=== PATIENT | female | born 1985 | race Caucasian/White ===

== ENCOUNTER 2023-01-20 16:17 | Observation (INO) | payer BC ==
[~2023-01-20 16:17] MED LIST: Iopamidol 370 76% 100 ML VIAL ONE
[2023-01-20 17:37] LABS: #Eosinphils 0.9 10x3/uL (0.0-0.5); #Monocytes 0.4 10x3/uL (0.0-1.1); #Neutrophils 7.3 10x3/uL (1.5-8.4); %Basophils 0.4 % (0.0-2.0); %Eosinophils 8.5 % (0.0-6.0); %Lymphocytes 19.3 % (18.0-47.0); %Monocytes 3.8 % (0.0-10.0); %Neutrophils 67.1 % (40.0-75.0); Hemoglobin 13.4 g/dL (12.0-15.5); Mean Corpuscular HGB CONC 34.3 g/dL (32.0-36.0); Mean Corpuscular Hemoglobin 29.2 pg (27.0-33.0); Mean Corpuscular Volume 85.2 fl (81.6-98.3); Mean Platelet Volume 9.4 fl (7.4-10.4); Platelet Count 315 10x3/uL (150-450); RBC Distribution Width 13.2 % (11.5-14.5); Red Blood Cell (RBC) Count 4.59 10x6/uL (3.90-5.03); White Blood Cell (WBC) Count 10.9 10x3/uL (3.5-10.5)
[2023-01-20 17:48] LABS: BHCG - Serum Negative (NEGATIVE)
[2023-01-20 17:49] LABS: Pregs Control Background? CLEAR/WHITE (CLR/WHITE); Pregs Control Bar Appear? YES (CONTROL BAR)
[2023-01-20] MEDS ORDERED: Ondansetron PF 4 MG/2 ML Vial ONE ×2 (17:51→21:32)
[2023-01-20 18:00] LABS: ALT (SGPT) 163 U/L (8-55); AST (SGOT) 55 U/L (5-34); Albumin 4.2 g/dL (3.5-5.0); Alkaline Phosphatase 256 U/L (40-110); Anion Gap 15 mmol/L (10-20); BUN (Urea Nitrogen) 13 mg/dL (7.0-18.7); Bilirubin, Total 0.8 mg/dL (0.2-1.2); Calc. Creatinine Clearance 0 mL/min (70-130); Calcium 9.7 mg/dL (7.8-10.44); Carbon Dioxide 19 mmol/L (22-29); Chloride 103 mmol/L (98-107); Estimated GFR 106; Globulin 3.3 g/dL (2.4-3.5); Glucose 169 mg/dL (70-105); Lipase 28 U/L (8-78); Magnesium 1.8 mg/dL (1.6-2.6); Potassium 3.9 mmol/L (3.5-5.1); Protein, Total 7.5 g/dL (6.0-8.3); Sodium 133 mmol/L (136-145)
[2023-01-20 18:03] LABS: SARS-CoV-2 NAA Rapid Test Not Detected (NotDetected)
[2023-01-20 18:38] LABS: Bilirubin Neg (Negative); Blood, Urine Negative (Negative); Clarity Clear (Clear); Glucose, Urine (Dipstick) Normal (Negative); Ketone, Urine Negative (Negative); Leukocyte Negative (Negative); Nitrite Negative (Negative); Protein, Urine (Dipstick) Negative (Neg-Trace); Urobilinogen Normal mg/dL (Less than 2); pH, Urine 6.5 (5.0-9.0)
[2023-01-20] MEDS ORDERED: Pantoprazole 40 MG VIAL ONE (22:25)
[2023-01-20] MEDS ORDERED: HumaLOG 300 UNITS/3 ML VIAL SC PRN (22:27)
[2023-01-20] MEDS ORDERED: Dextrose 5% in Water 1,000 ML IV PRN (22:27)
[2023-01-20] MEDS ORDERED: Dextrose 50% Abboject 50 ML SYRINGE SLOW IVP PRN (22:27)
[2023-01-20] MEDS ORDERED: Acetaminophen 325 MG TAB PO PRN (22:27)
[2023-01-20] MEDS ORDERED: Guaifenesin DM 100-10/5 ML UDCUP PO PRN (22:27)
[2023-01-20] MEDS ORDERED: HYDROcodone/Acetaminophen 5/325 mg Tablet PO PRN (22:27)
[2023-01-20] MEDS ORDERED: Senokot S 8.6-50 MG TAB PO PRN (22:27)
[2023-01-20] MEDS ORDERED: Cyclobenzaprine 10 MG TAB PO PRN (22:30)
[2023-01-20] MEDS: Sodium Chloride 0.9% 1,000 ML IV SCH (23:43)
[2023-01-21] MEDS ORDERED: Ondansetron PF 4 MG/2 ML Vial ONE ×2 (02:38→14:16)
[2023-01-21] MEDS: Ondansetron PF 4 MG/2 ML Vial IVP PRN ×2 (02:40→14:32)
[2023-01-21 04:05] LABS: #Basophils 0.1 10x3/uL (0.0-0.2); #Eosinphils 0.8 10x3/uL (0.0-0.5); #Monocytes 0.5 10x3/uL (0.0-1.1); %Basophils 0.6 % (0.0-2.0); %Eosinophils 8.2 % (0.0-6.0); %Lymphocytes 25.5 % (18.0-47.0); %Monocytes 5.3 % (0.0-10.0); %Neutrophils 59.4 % (40.0-75.0); Hemoglobin 11.6 g/dL (12.0-15.5); Mean Corpuscular HGB CONC 33.8 g/dL (32.0-36.0); Mean Corpuscular Hemoglobin 29.1 pg (27.0-33.0); Mean Platelet Volume 9.3 fl (7.4-10.4); Platelet Count 254 10x3/uL (150-450); RBC Distribution Width 13.3 % (11.5-14.5); Red Blood Cell (RBC) Count 3.99 10x6/uL (3.90-5.03); White Blood Cell (WBC) Count 10.1 10x3/uL (3.5-10.5)
[2023-01-21 04:16] LABS: ALT (SGPT) 112 U/L (8-55); AST (SGOT) 29 U/L (5-34); Albumin 3.6 g/dL (3.5-5.0); Alkaline Phosphatase 188 U/L (40-110); Anion Gap 12 mmol/L (10-20); BUN (Urea Nitrogen) 9 mg/dL (7.0-18.7); Bilirubin, Total 1.1 mg/dL (0.2-1.2); Calc. Creatinine Clearance 0 mL/min (70-130); Carbon Dioxide 20 mmol/L (22-29); Chloride 108 mmol/L (98-107); Estimated GFR 114; Globulin 2.6 g/dL (2.4-3.5); Glucose 115 mg/dL (70-105); Lipase 26 U/L (8-78); Protein, Total 6.2 g/dL (6.0-8.3); Sodium 136 mmol/L (136-145)
[2023-01-21 05:07] LABS: Amphetamine Not Detected (NotDetected); Barbiturates Screen Not Detected (NotDetected); Benzodiazepine Screen Not Detected (NotDetected); Cocaine Metabolite Screen Not Detected (NotDetected); Methadone Not Detected (NotDetected); Methamphetamine Not Detected (NotDetected); Opiate Screen Detected (NotDetected); Oxycodone Screen Not Detected (NotDetected); Phencyclidine (PCP) Not Detected (NotDetected); THC/Cannabinoid Screen Not Detected (NotDetected); Tricyclic Screen Not Detected (NotDetected)
[2023-01-21] MEDS ORDERED: Sertraline 100 MG TAB PO SCH (09:00)
[2023-01-21] MEDS ORDERED: Pantoprazole 40 MG VIAL IVP SCH (09:00)
[2023-01-21] MEDS ORDERED: Pantoprazole 40 MG VIAL ONE (09:13)
[2023-01-21] MEDS: Sodium Chloride 0.9% 1,000 ML IV SCH (10:59)
[2023-01-21] MEDS ORDERED: HYDROcodone/Acetaminophen 5/325 mg Tablet ONE (14:17)
== END 2023-01-21 14:45 | disposition short-term general hospital (02) ==
LOC: CSHERS 16:17 → INTOOBSV 23:19 → CSHERHOLD 23:19
PROVIDERS: ADMIT Student in an Organized Health Care Education/Training Program; ATTEND Family Medicine
DX: R10.11 Right upper quadrant pain (principal); E86.0 Dehydration; K92.1 Melena; R79.89 Other specified abnormal findings of blood chemistry; R10.13 Epigastric pain; R11.2 Nausea with vomiting, unspecified; E11.9 Type 2 diabetes mellitus without complications; E66.9 Obesity, unspecified; F41.9 Anxiety disorder, unspecified; Z90.89 Acquired absence of other organs; Z90.49 Acquired absence of other specified parts of digestive tract; Z88.0 Allergy status to penicillin; Z79.899 Other long term (current) drug therapy; Z87.891 Personal history of nicotine dependence; R42 Dizziness and giddiness; R55 Syncope and collapse; K81.9 Cholecystitis, unspecified; R00.0 Tachycardia, unspecified
CPT/HCPCS: 36415; 36416; 71275; 74177; 80053; 80306; 81003; 82274; 83605; 83690; 83735; 84443; 84484; 84703; 85025; 85379; 93005; 96361; 96374; 96375; 96376; C9113; G0378; J2405; J7050; Q9967

== ENCOUNTER 2023-07-28 10:03 | Emergency (ER) | payer OTHER ==
[2023-07-28] MEDS ORDERED: Rabies Immune Globulin/PF 300 UNITS/ML VIAL IM SCH (12:00)
[2023-07-28] MEDS ORDERED: Rabies Vaccine Human 2.5 UNITS VIAL IM ONE (12:00)
== END 2023-07-28 13:08 | disposition home or self-care (01) ==
LOC: CSHERS 10:03
DX: Z20.3 Contact with and (suspected) exposure to rabies (principal); Z23 Encounter for immunization; E11.9 Type 2 diabetes mellitus without complications
CPT/HCPCS: 90375; 90471; 90675; 96372; 99281

== ENCOUNTER 2023-11-30 12:38 | Emergency (ER) | payer OTHER ==
[2023-11-30 13:27] LABS: Bilirubin Neg (Negative); Blood, Urine Negative (Negative); Clarity Clear (Clear); Glucose, Urine (Dipstick) Normal (Negative); Ketone, Urine Negative (Negative); Leukocyte Negative (Negative); Nitrite Negative (Negative); Protein, Urine (Dipstick) Negative (Neg-Trace); Urobilinogen Normal mg/dL (Less than 2)
[2023-11-30 13:32] LABS: Pregnancy Test - Urine (BHCG) Negative (Negative)
[2023-11-30 13:32] LABS: #Eosinphils 0.1 10x3/uL (0.0-0.5); #Monocytes 0.5 10x3/uL (0.0-1.1); #Neutrophils 3.9 10x3/uL (1.5-8.4); %Basophils 0.5 % (0.0-2.0); %Eosinophils 1.9 % (0.0-6.0); %Lymphocytes 29.5 % (18.0-47.0); %Monocytes 7.9 % (0.0-10.0); %Neutrophils 59.7 % (40.0-75.0); Hematocrit 34.1 % (34.9-44.5); Hemoglobin 11.3 g/dL (12.0-15.5); Mean Corpuscular HGB CONC 33.1 g/dL (32.0-36.0); Mean Corpuscular Hemoglobin 27.6 pg (27.0-33.0); Mean Corpuscular Volume 83.2 fl (81.6-98.3); Mean Platelet Volume 10.4 fl (7.4-10.4); Platelet Count 259 10x3/uL (150-450); RBC Distribution Width 12.8 % (11.5-14.5); White Blood Cell (WBC) Count 6.5 10x3/uL (3.5-10.5)
[2023-11-30 13:33] LABS: Pregu Control Background? CLEAR/WHITE (CLR/WHITE); Pregu Control Bar Appear? YES (CONTROL BAR)
[2023-11-30 13:44] LABS: ALT (SGPT) 15 U/L (8-55); AST (SGOT) 12 U/L (5-34); Albumin 4.4 g/dL (3.5-5.0); Alkaline Phosphatase 75 U/L (40-110); Anion Gap 10 mmol/L (10-20); BUN (Urea Nitrogen) 10 mg/dL (7.0-18.7); Bilirubin, Total 1.4 mg/dL (0.2-1.2); Calc. Creatinine Clearance 0 mL/min (70-130); Calcium 9.3 mg/dL (7.8-10.44); Carbon Dioxide 25 mmol/L (22-29); Chloride 105 mmol/L (98-107); Estimated GFR 108; Globulin 2.8 g/dL (2.4-3.5); Glucose 99 mg/dL (70-105); Lipase 57 U/L (8-78); Potassium 4.2 mmol/L (3.5-5.1); Protein, Total 7.2 g/dL (6.0-8.3); Sodium 136 mmol/L (136-145)
[2023-11-30] MEDS ORDERED: Ondansetron PF 4 MG/2 ML Vial ONE (13:45)
[2023-11-30] MEDS ORDERED: Morphine 4 MG/ML VIAL ONE ×2 (13:45→15:13)
[2023-11-30 13:55] LABS: RBC/HPF 0-3 HPF (0-3)
[2023-11-30 13:56] LABS: Bacteria/HPF 2+ HPF (None Seen); CAUTI Indications for Culture Pelvic or flank pain; Squamous Epithelial 0-3 HPF (0-3); WBC/HPF 0-3 HPF (0-3)
[2023-11-30 13:57] LABS: Urine Culture Reflex No No
== END 2023-11-30 15:21 | disposition home or self-care (01) ==
LOC: CSHERS 12:38
DX: R10.9 Unspecified abdominal pain (principal); E11.9 Type 2 diabetes mellitus without complications
CPT/HCPCS: 36415; 74176; 80053; 81001; 81025; 83690; 85025; 96374; 96375; 96376; J2270; J2405

== ENCOUNTER 2024-08-12 10:51 | Emergency (ER) | payer OTHER, SELFPAY ==
[2024-08-12] MEDS ORDERED: Ketorolac Tromethamine 30 MG (1 mL) VIAL ONE (11:43)
[2024-08-12] MEDS ORDERED: Ondansetron PF 4 MG/2 ML Vial ONE (11:43)
[2024-08-12 11:51] LABS: #Basophils 0.03 10x3/uL (0.0-0.2); #Eosinophils 0.14 10x3/uL (0.0-0.5); #Monocytes 0.44 10x3/uL (0.0-1.1); #Neutrophils 4.28 10x3/uL (1.5-8.4); %Basophils 0.5 % (0.0-2.0); %Eosinophils 2.2 % (0.0-6.0); %Lymphocytes 20.2 % (18.0-47.0); %Monocytes 7.1 % (0.0-10.0); %Neutrophils 68.7 % (40.0-75.0); Hematocrit 30.1 % (34.9-44.5); Hemoglobin 9.2 g/dL (12.0-15.5); Mean Corpuscular HGB CONC 30.6 g/dL (32.0-36.0); Mean Corpuscular Hemoglobin 23.1 pg (27.0-33.0); Mean Corpuscular Volume 75.6 fL (81.6-98.3); Mean Platelet Volume 10.1 fL (7.4-10.4); Platelet Count 232 10x3/uL (150-450); RBC Distribution Width 15.3 % (11.5-14.5); Red Blood Cell (RBC) Count 3.98 10x6/uL (3.90-5.03); White Blood Cell (WBC) Count 6.2 10x3/uL (3.5-10.5)
[2024-08-12 12:06] LABS: BHCG - Serum Negative (NEGATIVE); Pregs Control Background? CLEAR/WHITE (CLR/WHITE); Pregs Control Bar Appear? YES (CONTROL BAR)
[2024-08-12 12:12] LABS: ALT (SGPT) 20 U/L (8-55); AST (SGOT) 14 U/L (5-34); Albumin 3.4 g/dL (3.5-5.0); Alkaline Phosphatase 83 U/L (40-110); Anion Gap 11 mmol/L (10-20); BUN (Urea Nitrogen) 10 mg/dL (7.0-18.7); Bilirubin, Total 0.8 mg/dL (0.2-1.2); Calc. Creatinine Clearance 0 mL/min (70-130); Carbon Dioxide 21 mmol/L (22-29); Chloride 107 mmol/L (98-107); Estimated GFR 114; Globulin 3.2 g/dL (2.4-3.5); Glucose 142 mg/dL (70-105); Lipase 41 U/L (8-78); Magnesium 1.7 mg/dL (1.6-2.6); Potassium 3.5 mmol/L (3.5-5.1); Protein, Total 6.6 g/dL (6.0-8.3); Sodium 135 mmol/L (136-145)
[2024-08-12 12:15] LABS: Troponin I Less than 0.010 ng/mL (< 0.028)
[2024-08-12] MEDS ORDERED: Morphine 4 MG/ML VIAL ONE (13:02)
[2024-08-12] MEDS ORDERED: Iopamidol 370 76% 100 ML VIAL ONE (13:11)
[2024-08-12 13:56] LABS: Bilirubin Neg (Negative); Blood, Urine Negative (Negative); Clarity Clear (Clear); Glucose, Urine (Dipstick) Normal (Negative); Ketone, Urine Negative (Negative); Leukocyte Negative (Negative); Nitrite Negative (Negative); Protein, Urine (Dipstick) 15 mg/dl (Neg-Trace); Urobilinogen Normal mg/dL (Less than 2)
[2024-08-12 14:17] LABS: Bacteria/HPF 1+ HPF (None Seen); CAUTI Indications for Culture Pelvic or flank pain; Mucous/LPF 1+ LPF (<2+); RBC/HPF 0-3 HPF (0-3); Squamous Epithelial 0-3 HPF (0-3); WBC/HPF 0-3 HPF (0-3)
[2024-08-12 14:18] LABS: Urine Culture Reflex No No
[2024-08-12] MEDS ORDERED: Milk Of Magnesia 30 ML UDCUP ONE (14:25)
[2024-08-12] MEDS ORDERED: Lidocaine Viscous Sol 2% 15 ml UD Cup ONE (14:25)
[2024-08-12] MEDS ORDERED: Famotidine/PF 20 mg/2ml Vial ONE (14:25)
== END 2024-08-12 15:07 | disposition home or self-care (01) ==
LOC: CSHERS 10:51
DX: N83.202 Unspecified ovarian cyst, left side (principal); F17.210 Nicotine dependence, cigarettes, uncomplicated
CPT/HCPCS: 36415; 74177; 80053; 81001; 83605; 83690; 83735; 84484; 84703; 85025; 85379; 93005; 93010; 96361; 96374; 96375; J1885; J2272; J2405; J3490; Q9967

== ENCOUNTER 2024-12-16 12:31 | Emergency (ER) | payer OTHER ==
[2024-12-16] MEDS ORDERED: Ondansetron PF 4 MG/2 ML Vial ONE (15:09)
[2024-12-16] MEDS ORDERED: Morphine 4 MG/ML VIAL ONE (15:09)
[2024-12-16 15:28] LABS: BHCG - Serum Negative (NEGATIVE); Pregs Control Background? CLEAR/WHITE (CLR/WHITE); Pregs Control Bar Appear? YES (CONTROL BAR)
[2024-12-16 15:35] LABS: ALT (SGPT) 19 U/L (Less than 34); AST (SGOT) 19 U/L (11-34); Albumin 4.4 g/dL (3.1-4.5); Alkaline Phosphatase 92 U/L (40-110); Anion Gap 10 mmol/L (10-20); BUN (Urea Nitrogen) 11 mg/dL (7.0-18.7); Bilirubin, Total 1.3 mg/dL (0.3-1.2); Calc. Creatinine Clearance 0 mL/min (70-130); Calcium 9.3 mg/dL (7.8-10.44); Carbon Dioxide 19 mmol/L (22-29); Chloride 111 mmol/L (98-107); Estimated GFR 115; Globulin 3.2 g/dL (2.4-3.5); Glucose 126 mg/dL (70-105); Protein, Total 7.6 g/dL (6.0-8.3); Sodium 136 mmol/L (136-145)
[2024-12-16 15:52] LABS: #Basophils 0.04 10x3/uL (0.0-0.2); #Eosinophils 0.13 10x3/uL (0.0-0.5); #Neutrophils 4.19 10x3/uL (1.5-8.4); %Basophils 0.6 % (0.0-2.0); %Eosinophils 1.9 % (0.0-6.0); %Monocytes 5.7 % (0.0-10.0); %Neutrophils 59.9 % (40.0-75.0); Hematocrit 37.2 % (34.9-44.5); Hemoglobin 12.5 g/dL (12.0-15.5); Mean Corpuscular HGB CONC 33.6 g/dL (32.0-36.0); Mean Corpuscular Hemoglobin 27.7 pg (27.0-33.0); Mean Corpuscular Volume 82.3 fL (81.6-98.3); Mean Platelet Volume 9.4 fL (7.4-10.4); Platelet Count 291 10x3/uL (150-450); Red Blood Cell (RBC) Count 4.52 10x6/uL (3.90-5.03); White Blood Cell (WBC) Count 6.99 10x3/uL (3.5-10.5)
[2024-12-16 16:01] LABS: Anisocytosis SLIGHT = 6-15 cells (100X) (0-5/hpf); MDiff Complete? YES; Platelet Adequacy Comment Appears Adequate
[2024-12-16] MEDS ORDERED: Droperidol 5 MG/2 ML VIAL ONE (16:59)
[2024-12-16] MEDS ORDERED: diphenhydrAMINE 50 MG/ML VIAL ONE (16:59)
== END 2024-12-16 18:20 | disposition home or self-care (01) ==
LOC: CSHERS 12:31
DX: R51.9 Headache, unspecified (principal); R42 Dizziness and giddiness; E11.9 Type 2 diabetes mellitus without complications; Z87.891 Personal history of nicotine dependence
CPT/HCPCS: 36415; 70450; 80053; 84703; 85025; 96374; 96375; J1200; J1790; J2270; J2405

== ENCOUNTER 2025-06-16 16:20 | Emergency (ER) | payer OTHER ==
[2025-06-16 17:39] LABS: #Basophils 0.03 10x3/uL (0.0-0.2); #Eosinophils 0.11 10x3/uL (0.0-0.5); #Monocytes 0.43 10x3/uL (0.0-1.1); #Neutrophils 4.69 10x3/uL (1.5-8.4); %Basophils 0.4 % (0.0-2.0); %Eosinophils 1.5 % (0.0-6.0); %Lymphocytes 28.8 % (18.0-47.0); %Monocytes 5.7 % (0.0-10.0); %Neutrophils 62.4 % (40.0-75.0); Hematocrit 31.3 % (34.9-44.5); Hemoglobin 10.7 g/dL (12.0-15.5); Mean Corpuscular Hemoglobin 31.2 pg (27.0-33.0); Mean Corpuscular Volume 91.3 fL (81.6-98.3); Platelet Count 252 10x3/uL (150-450); Red Blood Cell (RBC) Count 3.43 10x6/uL (3.90-5.03); White Blood Cell (WBC) Count 7.51 10x3/uL (3.5-10.5)
[2025-06-16 18:00] LABS: ALT (SGPT) 13 U/L (Less than 34); AST (SGOT) 12 U/L (11-34); Albumin 3.8 g/dL (3.1-4.5); Alkaline Phosphatase 67 U/L (40-110); Anion Gap 10 mmol/L (10-20); BUN (Urea Nitrogen) 12 mg/dL (7.0-18.7); Bilirubin, Total 0.7 mg/dL (0.3-1.2); Calc. Creatinine Clearance 0 mL/min (70-130); Calcium 9.3 mg/dL (7.8-10.44); Carbon Dioxide 21 mmol/L (22-29); Chloride 111 mmol/L (98-107); Globulin 2.5 g/dL (2.4-3.5); Glucose 121 mg/dL (70-105); Potassium 3.6 mmol/L (3.5-5.1); Sodium 138 mmol/L (136-145)
[2025-06-16 18:02] LABS: Troponin I Less than 0.010 ng/mL (< 0.028)
== END 2025-06-16 18:49 | disposition home or self-care (01) ==
LOC: CSHERS 16:20
DX: R00.2 Palpitations (principal); E11.9 Type 2 diabetes mellitus without complications; Z87.891 Personal history of nicotine dependence
CPT/HCPCS: 71045; 80053; 84484; 85025; 85379; 93005

== ENCOUNTER 2025-08-29 18:12 | Emergency (ER) | payer OTHER ==
[2025-08-29 18:57] LABS: #Basophils 0.04 10x3/uL (0.0-0.2); #Eosinophils 0.22 10x3/uL (0.0-0.5); #Monocytes 0.44 10x3/uL (0.0-1.1); #Neutrophils 5.15 10x3/uL (1.5-8.4); %Basophils 0.5 % (0.0-2.0); %Eosinophils 2.6 % (0.0-6.0); %Lymphocytes 29.3 % (18.0-47.0); %Monocytes 5.3 % (0.0-10.0); %Neutrophils 61.6 % (40.0-75.0); Hematocrit 34.2 % (34.9-44.5); Hemoglobin 11.6 g/dL (12.0-15.5); Mean Corpuscular Hemoglobin 30.7 pg (27.0-33.0); Mean Corpuscular Volume 90.5 fL (81.6-98.3); Platelet Count 310 10x3/uL (150-450); Red Blood Cell (RBC) Count 3.78 10x6/uL (3.90-5.03); White Blood Cell (WBC) Count 8.36 10x3/uL (3.5-10.5)
[2025-08-29 19:14] LABS: ALT (SGPT) 20 U/L (Less than 34); AST (SGOT) 16 U/L (11-34); Albumin 4.2 g/dL (3.1-4.5); Alkaline Phosphatase 87 U/L (40-110); Anion Gap 10 mmol/L (10-20); BUN (Urea Nitrogen) 15 mg/dL (7.0-18.7); Bilirubin, Total 0.5 mg/dL (0.3-1.2); Calc. Creatinine Clearance 0 mL/min (70-130); Calcium 9.3 mg/dL (7.8-10.44); Carbon Dioxide 19 mmol/L (22-29); Chloride 113 mmol/L (98-107); Globulin 2.8 g/dL (2.4-3.5); Glucose 134 mg/dL (70-105); Potassium 3.6 mmol/L (3.5-5.1); Sodium 138 mmol/L (136-145)
[2025-08-29 19:15] LABS: Troponin I Less than 0.010 ng/mL (< 0.028)
== END 2025-08-29 19:56 | disposition home or self-care (01) ==
LOC: CSHERS 18:12
DX: R00.2 Palpitations (principal); E11.9 Type 2 diabetes mellitus without complications; Z55.6 Problems related to health literacy; Z87.891 Personal history of nicotine dependence; Z79.899 Other long term (current) drug therapy; Z79.85 Long-term (current) use of injectable non-insulin antidiabetic drugs
CPT/HCPCS: 36415; 70450; 71045; 80053; 83880; 84484; 85025; 85379; 93005